=== PATIENT | male | born 1930 | race Caucasian/White ===

== ENCOUNTER → 2017-03-09 | Outpatient (CLI) | payer OTHER, MEDICARE | END | disposition home or self-care (01) | LOC: RAD 10:36 | DX: R13.10 Dysphagia, unspecified (principal); R09.89 Other specified symptoms and signs involving the circulatory and respiratory systems; R05 Cough; I70.0 Atherosclerosis of aorta; M48.04 Spinal stenosis, thoracic region; Z85.21 Personal history of malignant neoplasm of larynx; J44.9 Chronic obstructive pulmonary disease, unspecified; I21.9 Acute myocardial infarction, unspecified ==

== ENCOUNTER → 2017-04-05 | Outpatient (CLI) | payer OTHER, MEDICARE ==
--- NOTE | ~2017-04-05 | PROC NOTE ---
[place], [place] PROCEDURE NOTE NAME: AMY BATISTA UNIT #: [id number] ROOM: DOCTOR: AMARILYSKATHY BIRTHDATE: [birth year] DOS: 04/05/2017 ORDERING PHYSICIAN: Bhavana Rincon. RADIOLOGIST: Dr. Arthur. BACKGROUND INFORMATION: The patient is an 86-year-old male who was seen for a modified barium swallow. This test was ordered to rule out aspiration. The patient was alert and able to easily follow all directions and provide case history during the examination. 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 The patient also reported recent pneumonia. He stated that for the past 6 months he has been coughing with food and liquid "pretty often." He also reported weight loss of 25 pounds during that time frame. The patient currently receives a regular diet and thin liquids. He stated that his appetite has been good. For today's assessment, respiratory status was reported as within normal limits. The patient was noted to be congested. Oral peripheral examination revealed presence of upper and lower denture with adequate fit reported. Labial and buccal skills were noted to be within normal limits in terms of strength, range of motion, and coordination. The patient had difficulty with lingual elevation and depression only. His volitional cough and swallow were adequate. METHODS AND MATERIALS USED FOR THE EXAM: The patient was positioned in the lateral plane and exam was viewed under fluoroscopy. The patient was presented with a variety of consistencies to assess swallowing skills including applesauce mixed with barium presented in half teaspoon amounts, barium-coated cookie and sandwich given in bite size pieces and thin, nectar and honey-thick barium taken by cup in single sip size amounts with head neutral and in chin tuck position. ORAL PHASE: The patient achieved adequate labial seal around cup and spoon with no anterior loss. Bolus formation and transit were adequate. Mastication was adequate. Tongue to palate contact was adequate. Tongue to posterior pharyngeal wall contact was moderately impaired with all consistencies. functioning was adequate. PHARYNGEAL PHASE: The pharyngeal swallow triggered within a timely manner. Hyolaryngeal elevation was impaired with all consistencies. Pharyngeal squeeze was also reduced and pooling in the vallecula and residue throughout the pharynx occurred. The patient was not always aware of the residue in order to independently clear it. Strategies were attempted to clear the residue such as cues to secondary swallow, liquid wash and hard swallow. None of these strategies were completely effective in clearing the residue. When given thin liquid barium due to his reduced laryngeal elevation and epiglottic function, aspiration did occur during the swallow. This elicited a cough; however, this cough was not effective in clearing his airway. The patient was next trialled with nectar-thick liquid and again aspiration occurred during the swallow. The patient began coughing and was eventually coughing out material. Honey-thick barium was attempted. Aspiration again occurred. However, when he implemented a chin tuck position with honey-thick liquid, no aspiration occurred. Chin tuck was incidentally attempted with nectar-thick barium; however, aspiration was [place], [place] PROCEDURE NOTE NAME: AMY BATISTA UNIT #: [id number] ROOM: DOCTOR: KATHY PANDA BIRTHDATE: [birth year] still observed. He continued to cough out material throughout the remainder of the study. The patient did state that frequent cough and spitting out material is typically what occurs when he eats. ESOPHAGEAL PHASE: This phase of the swallow was not formally assessed during this examination. IMPRESSIONS AND RECOMMENDATIONS: Based upon assessment results, this 86-year-old patient presents with a moderate oral and moderate to severe pharyngeal phase dysphagia. The patient displayed moderately reduced tongue to posterior pharyngeal wall contact with all consistencies resulting in residue in the vallecula and throughout the pharynx. He was not always aware of the residue and not able to completely clear it. Strategies were attempted, which did not completely clear the residue. Hyolaryngeal elevation was reduced and aspiration occurred with thin and thick liquids, ineffective coughing occurred with aspiration and the patient began coughing out material. Chin tuck was attempted to eliminate aspiration and this was effective only when combined with honey-thick liquid. The patient also presented at risk for further aspiration episodes due to residue around his airway entrance. The patient continued to cough and spit out material throughout the procedure and stated that this is typically what occurs when he eats. Alternate means of nutrition was discussed, but patient refused. Due to this, his least restrictive diet would be soft food and honey-thick liquids with strict adherence to the following precautions: chin tuck with liquid, small bites and sips, alternating liquid and solid, double swallow after every bite and sip and use a hard swallow to help propel the bolus. Intensive dysphagia therapy is also recommended focusing on strengthening exercises to improve swallowing safety. Results and recommendations were shared with the patient and provided in written form for carry over. Education regarding thickening of liquids was provided. The patient verbalized understanding, but admitted that he was overwhelmed by all of this information. Clinician will call the patient tomorrow to provide more opportunity for patient or family members to ask questions and provide further information. Clinician will also contact the patient's physician to obtain orders for followup therapy. Thank you very much for this referral. Should you have any questions regarding this patient, please contact the speech pathologist at [phone]. [place], [place] PROCEDURE NOTE NAME: AMY BATISTA EDWARD #: [id number] UNIT #: [id number] ROOM: DOCTOR: KATHY PANDA BIRTHDATE: [birth year] KATHY PANDA CM:PROCNOTE:PROCEDURE NOTE [id number] KATHY PANDA
--- NOTE | ~2017-04-05 | SLPPOC ---
[place], [place] PRINTING PRESS OPERATOR APPRENTICE PLAN OF CARE NAME: AMY BATISTA UNIT #: [id number] ROOM: DOCTOR: HEATHER FORBES Speech Language Pathology Plan of Care Page 1 1 (Initial Evaluation) of Patient Name: AMY BATISTA Date: 04/05/2017 02:48 PM : 1930 SOC Date: 04/05/2017 [facility]: [facility] Provider #: [id number] Treating Clinician: SANDRA Rojas-PRINTING PRESS OPERATOR APPRENTICE Referring Physician: HEATHER FORBES Medicare #: [id number] Visits From SOC: Onset Date Description Code Primary Diagnosis: 04/05/2017 A0000 NO DIAGNOSIS SENT TO THE [facility] Subjective Comments: Initial evaluation created to initiate the electronic medical record. Please see [employer] for details. Initial Level Goals Functional Limitation Reporting Swallowing G8996 - Swallowing functional limitation, current status at therapy episode outset and at reporting intervals Current Status: CL - At least 60 percent but less than 80 percent impaired, limited or restricted G8997 - Swallowing functional limitation, projected goal status, at therapy episode outset, at reporting intervals, and at discharge or to end reporting Goal Status: CL - At least 60 percent but less than 80 percent impaired, limited or restricted G8998 - Swallowing functional limitation, discharge status, at discharge from therapy or to end reporting Discharge Status: CL - At least 60 percent but less than 80 percent impaired, limited or restricted 04/05/2017 2:50:15 PM HEATHER FORBES Date/Time SANDRA Rojas-MIGUEL ANGEL Date I certify the need for these services furnished under this plan of treatment while under my care. State License #: [id number] CM:SLPPOC [id number] [facility]
--- NOTE | ~2017-04-05 | SLPPN ---
[place], [place] MATCHBOOK ASSEMBLER PROGRESS NOTE NAME: AMY BATISTA UNIT #: [id number] ROOM: DOCTOR: HEATHER FORBES Speech Language Pathology Treatment Note Page 1 1 of Patient Name: AMY BATISTA Date: 04/05/2017 02:50 PM : 1930 SOC Date: 04/05/2017 Provider: [facility] Provider #: [id number] Treating Clinician: SANDRA Rojas-MATCHBOOK ASSEMBLER Referring Physician: HEATHER FORBES Onset Date Description Code Primary Diagnosis: 04/05/2017 A0000 NO DIAGNOSIS SENT TO THE [facility] Time In: 01:00 PM Time Out: 02:00 PM MATCHBOOK ASSEMBLER Interventions and CPT Codes Consisted of: CPT Code Modifiers Minutes Units MOTION FLUOROSCOPY/SWALLOW 52304 60 1 Total Minutes: 60 Total Timed Minutes: 0 Total Untimed Minutes: 60 Total Units: 1 Total Timed Units: 0 Total Untimed Units: 1 04/05/2017 2:50:59 PM SANDRA Rojas-MATCHBOOK ASSEMBLER Date/Time State License #: [id number] CM:SHEY 1451 1451 [facility]
--- NOTE | ~2017-04-05 | SLPIE ---
[place], [place] TRANSPORTATION DESIGN ENGINEER INITIAL EVALUATION NAME: AMY BATISTA UNIT #: [id number] ROOM: DOCTOR: HEATHER FORBES Speech Language Pathology Initial Evaluation Page 1 1 of Patient Name: AMY BATISTA Date: 04/05/2017 02:48 PM : 1930 SOC Date: 04/05/2017 Provider: [facility] Provider #: [id number] Treating Clinician: SANDRA Rojas-TRANSPORTATION DESIGN ENGINEER Referring Physician: HEATHER FORBES Patient Information Address: [place] [address] Physician: HEATHER FORBES [address] [facility] Physician #: City, [facility], Zip: [place] [address] Occupation: Unknown # of Approved Visits: 0 Gender: Male Resort Manager: JEY CHUNG Medicare #: [id number] Rehabilitation Information / History Onset Date Code Description Primary Diagnosis: 04/05/2017 A0000 NO DIAGNOSIS SENT TO THE [facility] Subjective Comments: Initial evaluation created to initiate the electronic medical record. Please see [employer] for details. Rehabilitation Information / History Clinical Findings Functional Goals Functional Limitation Reporting Swallowing G8996 - Swallowing functional limitation, current status at therapy episode outset and at reporting intervals Current Status: CL - At least 60 percent but less than 80 percent impaired, limited or restricted G8997 - Swallowing functional limitation, projected goal status, at therapy episode outset, at reporting intervals, and at discharge or to end reporting Goal Status: CL - At least 60 percent but less than 80 percent impaired, limited or restricted G8998 - Swallowing functional limitation, discharge status, at discharge from therapy or to end reporting Discharge Status: CL - At least 60 percent but less than 80 percent impaired, limited or restricted 04/05/2017 2:50:15 PM SANDRA Rojas-TRANSPORTATION DESIGN ENGINEER Date/Time [place], [place] TRANSPORTATION DESIGN ENGINEER INITIAL EVALUATION NAME: AMY BATISTA UNIT #: [id number] ROOM: DOCTOR: HEATHER FORBES [facility] License #: [id number] CM:RIVERA 50 145 [facility]
== END | disposition home or self-care (01) ==
LOC: RAD/SH 12:15
DX: J18.8 Other pneumonia, unspecified organism (principal); C32.9 Malignant neoplasm of larynx, unspecified; R09.89 Other specified symptoms and signs involving the circulatory and respiratory systems; R05 Cough; R63.4 Abnormal weight loss